=== PATIENT | female | born 1990 ===

== ENCOUNTER 2023-02-18 18:22 | Inpatient (IN) | payer SELFPAY ==
[~2023-02-18] VITALS: Ht 154.9 cm; Wt 73.9 kg
[2023-02-18 20:19] LABS: Urine Bacteria NONE SEEN /hpf (None Seen); Urine Blood Negative /uL (Negative); Urine Clarity Clear (Clear); Urine Color Yellow (Yellow); Urine Mucus FEW (None Seen); Urine Protein, UAD 2+ (Negative); Urine Specific Gravity 1.016 (1.001-1.035); Urine Urobilinogen Normal (Negative); Urine WBC 1 /hpf (0 - 5); Urine pH 6.5 (5.0-8.0)
[2023-02-18 20:37] LABS: Protein, Urine 196.6 mg/dL (0.0-11.9)
[2023-02-18 20:38] LABS: Amphetamine Screen, Urine Neg (NEGATIVE); Barbiturate Scree,Urine Neg (NEGATIVE); Benzodiazephine Screen, Urine Neg (NEGATIVE); Cocaine Screen, Urine Neg (NEGATIVE); Opiate Scree,Urine Neg (NEGATIVE)
[2023-02-18 20:39] LABS: Cannabinoid Screen, Urine Neg (NEGATIVE); Creatinine, Urine 74.75 mg/dL (30.0-125.0); Phencyclidine Screen, Urine Neg (NEGATIVE); Urine Protein/Creatinine Ratio 2.63
[2023-02-18 21:27] LABS: Basophils # (auto) 0 10 ^3/uL (0-0.2); Basophils % (auto) 0.3 % (0.0-2.0); Eosinophils # (auto) 0 10 ^3/uL (0-0.8); Eosinophils % (auto) 0.3 % (0.0-7.0); Hematocrit 37.3 % (36.0-46.0); Hemoglobin 12.7 g/dL (12.2-16.2); Lymphocytes # (auto) 2.1 10 ^3/uL (0.4-5.4); Lymphocytes % (auto) 18.3 % (10.0-50.0); Mean Corpuscular Hemoglobin 33.3 pg (28.0-32.0); Mean Corpuscular Hgb Conc. 33.9 g/dL (32.0-36.0); Monocytes # (auto) 0.4 10 ^3/uL (0-1.3); Neutrophils # (auto) 9.1 10 ^3/uL (1.6-8.6); Neutrophils % (auto) 78.1 % (37.0-80.0); Nucleated Red Blood Cells % 0.3 %; Red Blood Cells 3.81 10^6/uL (4.0-5.20); Red Cell Distribution Width 13.1 % (11.8-14.3); White Blood Cell 11.7 10^3/uL (4.4-10.8)
[2023-02-18 21:39] LABS: INR 0.93 (0.9-1.15); Partial Thromboplastin Time 27.7 SEC (24.5-34.5); Prothrombin Time 9.8 sec (9.3-11.8)
[2023-02-18 21:41] LABS: Alanine Aminotransferase 39 U/L (7-40); Albumin 4.2 g/dL (3.2-4.8); Alkaline Phosphatase 178 U/L (46-116); Anion Gap 13 (5-15); Aspartate Aminotransferase 31 U/L (13-40); BUN/Creatinine Ratio 9.4 (10.0-20.0); Blood Urea Nitrogen 5 mg/dL (9-23); Calcium 9.2 mg/dL (8.7-10.4); Carbon Dioxide 20 mmol/L (20-30); Chloride 106 mmol/L (98-107); Glucose 91 mg/dL (74-106); Potassium 3.5 mmol/L (3.5-5.1); Sodium 139 mmol/L (136-145); Uric Acid 5.2 mg/dL (3.1-7.8)
[2023-02-18 21:42] LABS: Bilirubin, Total 0.2 mg/dL (0.2-1.0); Total Protein 7.4 g/dL (5.7-8.2)
[2023-02-18] MEDS ORDERED: BETAMETHASONE ACET (30mg/5ml) 5ml Vial 6mg/ml IM ONE (22:15)
[2023-02-18] MEDS ORDERED: MAGNESIUM SULFATE 40MG/ML 1,000 ML IV SCH (22:30)
[2023-02-18] MEDS ORDERED: LACTATED RINGER'S 1,000 ML IV SCH (22:30)
[2023-02-18] MEDS ORDERED: CALCIUM GLUC 4.65 MEQ/10ML IV PRN ×3 (22:30)
[2023-02-18] MEDS ORDERED: MAGNESIUM SULFATE 100 ML IV ONE (22:30)
[2023-02-18] MEDS ORDERED: hydrALAZINE HCL 20 MG/ML VL ONE (23:31)
[2023-02-18] MEDS ORDERED: hydrALAZINE HCL 20 MG/ML VL IV ONE (23:45)
[2023-02-20 06:06] LABS: Rubella Antibodies, IgG 1.56 index (Immune >0.99)
[2023-02-20 08:07] LABS: RPR Non Reactive (Non Reactive)
[2023-02-20 17:06] LABS: QuantiFERON-TB Gold Plus Positive (Negative)
[2023-02-21 19:06] LABS: Treponema pallidum Ab (FTA-Ab) Non Reactive (Non Reactive)
== END 2023-02-18 23:58 | disposition short-term general hospital (02) | DRG 833 ==
LOC: LDRP 18:22 → EDBD 18:22 → LDRP 19:29 → OBSVTOIN 22:20
PROVIDERS: ADMIT Obstetrics & Gynecology; ATTEND Obstetrics & Gynecology
DX: O14.13 Severe pre-eclampsia, third trimester (principal); Z3A.31 31 weeks gestation of pregnancy
CPT/HCPCS: 36415; 59025; 76805; 76817; 80053; 80307; 81001; 81002; 82570; 83036; 84156; 84550; 85025; 85610; 85730; 86592; 86703; 86762; 86850; 86900; 86901; 87340; 94760; 96360; 96365; 96374; G0378